=== PATIENT | female | born 1930 | race Caucasian/White ===

== ENCOUNTER 2017-05-15 20:25 | Inpatient (IN) | payer OTHER ==
[~2017-05-15] VITALS: Ht 162.6 cm; Wt 104.1 kg
[~2017-05-15 20:25] MED LIST: ADULT LOW DOSE81 M1 PO; ADVAIR 250/501 DISK IH; ALDACTONE25 MG PO; ALLOPURINOL100 MG PO; ATIVAN0.5 MG PO; Ativan PO; B-6 PO; CARDIZEM60 MG PO; CLARITIN10 M3 PO; COLCRYS0.6 MG PO; COUMADIN,JANTOVE2 MG PO; COUMADIN1 MG PO; COUMADIN4 MG PO; COUMADIN6 MG PO; CYANOCOBALAM1000 MCG PO; Colace PO; Colchicine,Colcrys PO; DESYREL100 MG PO; DIGITEK250 MCG PO; DITROPAN XL10 MG PO; DITROPAN XL5 MG PO; DITROPAN5 MG PO; DOCUSATE SODIU100 MG PO; DUONEB 2.5-0.5 M3 ML IH; FERROUS SULFAT325 MG PO; FIBER500 MG PO; FISH OIL PO; FUROSEMIDE40 MG PO; FUROSEMIDE80 MG PO; Feosol PO; IPRATR-ALBUTEROL3 ML IH; IRON SUPPLEMEN325 MG PO; IRON TABLET1 EACH PO; IRON325 M1 PO; IRON325 MG PO; K-DUR10 MEQ PO; KLOR-CON 1010 ME1 PO; KLOR-CON M2020 MEQ PO; LANOXIN,DIGIT0.25 MG PO; LASIX40 MG PO; LASIX80 MG PO; LEVAQUIN500 MG PO; LEVOFLOXACIN750 MG PO; LEVOTHROID,S0.125 MG PO; LEVOTHYROXINE125 MCG PO; LEVOTHYROXINE150 MCG PO; LORAZEPAM0.5 MG PO; LORTAB 7.5-500473 ML PO; Lasix PO; Levothroid,Synthroid PO; MICRO-K10 ME2 PO; MIRALAX17 GM PO; MIRALAX255 GM PO; MYCOSTATIN 100,60 ML PO; Metamucil Capsule PO; Micro-K,K-Tab,K-Dur, PO; Miralax, Glycolax PO; NASAL SPRAY30 M4 BOTH NARES; NON-ASPIRIN PA325 MG PO; Nitrostat,NitroQuick SL; OXYBUTYNIN CHLO10 MG PO; OXYBUTYNIN CHLOR5 MG PO; PAROXETINE HCL20 MG PO; PAROXETINE HCL40 MG PO; PAXIL20 MG PO; PAXIL40 MG PO; POTASSIUM CHLO10 ME4 PO; PRADAXA150 MG PO; PRAVACHOL40 MG PO; PRAVASTATIN SOD40 MG PO; PREDNISONE20 MG PO; PROVENTIL HFA6.7 GM IH; PT UNSURE OF MEDS; Paxil PO; Pravachol PO; Protonix PO; Pyridoxine,Vitamin B PO; RANITIDINE HCL150 MG PO; REQUIP0.5 MG PO; REQUIP1 MG PO; ROPINIROLE HCL1 MG PO; ROPINIROLE HCL2 MG PO; RX BALANCE INT1 EACH PO; Requip PO; SIMVASTATIN20 M1 PO; SIMVASTATIN20 MG PO; SPIRIVA1 INHALATI IH; SPIRONOLACTONE25 MG PO; SPIRONOLACTONE50 MG PO; STOOL SOFTENER100 MG PO; THEO-DUR,THEOC300 MG PO; TRAMADOL HCL50 MG PO; TRAVEL SICKNESS25 MG PO; TRAZODONE HCL100 MG PO; TYLENOL EXTRA500 MG PO; TYLENOL REGULA325 MG PO; ULTRAM50 MG PO; UNIPHYL600 MG PO; Ultram PO; VENTOLIN HFA18 GM IH; VERAPAMIL ER180 MG PO; VERAPAMIL HCL180 M2 PO; VESICARE10 MG PO; VICODIN 5-5001 EACH PO; VITAMIN B-6100 MG PO; VITAMIN B-650 MG PO; WARFARIN SODIUM3 MG PO; WARFARIN SODIUM5 MG PO; XANAX0.5 MG PO; XARELTO15 MG PO; Xarelto PO; ZESTRIL,PRINIVIL5 MG PO; ZITHROMAX250 MG PO; ZYLOPRIM100 MG PO; [UNRECOGNIZED DRUG - OTHER] PO
[2017-05-15 22:54] LABS: INTER. NORMALIZED RATIO 1.9; PROTHROMBIN TIME 19.4 (9.2-11.2)
[2017-05-15 22:57] LABS: CHLORIDE 98 mEq/L (99-109); POTASSIUM 4.6 mEq/L (3.7-5.4); SODIUM 141 mEq/L (136-147)
[2017-05-15 22:58] LABS: GLUCOSE 122 mg/dL (70-99)
[2017-05-15 23:00] LABS: ANION GAP 8 MEQ/L (2-14)
[2017-05-15 23:02] LABS: GFR ESTIMATE (CALCULATED) 50 mL/min/
[2017-05-15 23:03] LABS: UREA NITROGEN (BUN) 27 mg/dL (9-23)
[2017-05-15 23:23] LABS: EOSINOPHIL (%) 0.8 % (0-5); EOSINOPHIL COUNT 0.1 K/uL (0-0.3); HEMATOCRIT 38.6 % (36.0-46.0); IMMATURE GRANULOCYTE (%) 0.4 % (0.0-0.7); LYMPHOCYTE COUNT 1.3 K/uL (1.0-2.8); MCH 35.8 PG (29.0-34.0); MCHC 34.7 G/DL (30.0-36.0); MCV 103.2 FL (83-99); MEAN PLAT.VOLUME 10.2 uM^3 (9.5-12.4); MONOCYTE (%) 12.1 % (3-12); NEUTROPHIL (%) 71.4 % (45-76); PLATELET COUNT 221 K/uL (156-360); RBC DIS.WIDTH-CV 15.1 % (11.8-14.6); RBC DIS.WIDTH-SD 48.9 % (39-53); RED BLOOD COUNT 3.74 M/uL (3.80-5.20); WHITE BLOOD COUNT 8.4 K/uL (4.1-10.2)
[2017-05-15] MEDS ORDERED: COUMADIN5 MG PO (23:49)
[2017-05-15] MEDS ORDERED: MAGNESIUM OXID400 MG PO (23:50)
[2017-05-15] MEDS ORDERED: METOLAZONE2.5 MG PO (23:51)
[2017-05-15] MEDS ORDERED: PRILOSEC OTC20 MG PO (23:52)
[2017-05-15] MEDS ORDERED: REQUIP0.5 MG PO (23:53)
[2017-05-15] MEDS ORDERED: SENNA PLUS TAB1 EACH PO (23:54)
[2017-05-15] MEDS ORDERED: QUETIAPINE FUMA50 M1 PO (23:55)
[2017-05-15] MEDS ORDERED: SPIRONOLACTONE50 MG PO (23:55)
[2017-05-15] MEDS ORDERED: BRINTELLIX20 MG PO (23:57)
[2017-05-15] MEDS ORDERED: VITAMIN B-650 MG PO (23:58)
[2017-05-15] MEDS ORDERED: KLOR-CON M2020 MEQ PO (23:59)
[2017-05-16] VITALS (7 sets, daily range): BP systolic 107–138; BP diastolic 53–79
[2017-05-16] MEDS ORDERED: BUSPIRONE HCL10 MG PO
[2017-05-16] MEDS ORDERED: DULCOLAX10 MG PR (00:01)
[2017-05-16] MEDS ORDERED: LORAZEPAM0.5 MG PO (00:02)
[2017-05-16] MEDS ORDERED: MILK OF MAGN PO (00:03)
[2017-05-16] MEDS ORDERED: MIRALAX255 GM PO (00:03)
[2017-05-16 06:57] LABS: PROTHROMBIN TIME 20.6 (9.2-11.2); PTT 32.9 (25-32)
[2017-05-16 07:19] LABS: ALKALINE PHOSPHATASE 52 IU/L (3-129); ANION GAP 5 MEQ/L (2-14); CHLORIDE 99 MEQ/L (99-109); GFR ESTIMATE (CALCULATED) 56 mL/min/; GLUCOSE 95 mg/dL (70-99); POTASSIUM 3.8 MEQ/L (3.7-5.4); SAMPLE HEMOLYSIS CHECK 0; SAMPLE ICTERIC CHECK 0; SAMPLE LIPEMIA CHECK 0; SODIUM 142 MEQ/L (136-147); TOTAL BILIRUBIN 0.7 MG/DL (0.0-1.0); UREA NITROGEN (BUN) 28 mg/dL (9-23)
[2017-05-16 07:31] LABS: HEMATOCRIT 37.5 % (36.0-46.0); MCH 32.9 PG (29.0-34.0); MCHC 32.3 G/DL (30.0-36.0); MCV 101.9 FL (83-99); MEAN PLAT.VOLUME 9.9 uM^3 (9.5-12.4); PLATELET COUNT 201 K/uL (156-360); RBC DIS.WIDTH-CV 13.4 % (11.8-14.6); RED BLOOD COUNT 3.68 M/uL (3.80-5.20); WHITE BLOOD COUNT 6.6 K/uL (4.1-10.2)
[2017-05-17 03:57] VITALS: BP 134/64
[2017-05-17 07:18] LABS: INTER. NORMALIZED RATIO 2.1; PROTHROMBIN TIME 21.6 (9.2-11.2); PTT 33.1 (25-32)
[2017-05-17 07:58] VITALS: BP 120/67
[2017-05-17 08:09] LABS: ANION GAP 7 MEQ/L (2-14); CHLORIDE 93 MEQ/L (99-109); GFR ESTIMATE (CALCULATED) 56 mL/min/; GLUCOSE 92 mg/dL (70-99); POTASSIUM 3.7 MEQ/L (3.7-5.4); SAMPLE HEMOLYSIS CHECK 0; SAMPLE ICTERIC CHECK 0; SAMPLE LIPEMIA CHECK 0; SODIUM 140 MEQ/L (136-147); UREA NITROGEN (BUN) 25 mg/dL (9-23)
[2017-05-17 08:26] LABS: HEMATOCRIT 39.5 % (36.0-46.0); MCH 33.1 PG (29.0-34.0); MCHC 32.7 G/DL (30.0-36.0); MCV 101.3 FL (83-99); MEAN PLAT.VOLUME 10.1 uM^3 (9.5-12.4); PLATELET COUNT 202 K/uL (156-360); RBC DIS.WIDTH-CV 13.2 % (11.8-14.6); WHITE BLOOD COUNT 6.7 K/uL (4.1-10.2)
[2017-05-17] MEDS ORDERED: QUETIAPINE FUMA25 MG PO (15:23)
[2017-05-17 16:01] VITALS: BP 120/74
== END 2017-05-17 17:43 | DRG 86 ==
LOC: EME 20:25 → EDOF 23:48 → 3EAST 05-16 00:43
PROVIDERS: Emergency Medicine; Internal Medicine; Physician Assistant
DX: S06.5X0A Traumatic subdural hemorrhage without loss of consciousness, initial encounter (principal); W04.XXXA Fall while being carried or supported by other persons, initial encounter; N17.9 Acute kidney failure, unspecified; I11.0 Hypertensive heart disease with heart failure; I50.32 Chronic diastolic (congestive) heart failure; I48.2 Chronic atrial fibrillation; I47.1 Supraventricular tachycardia; J44.9 Chronic obstructive pulmonary disease, unspecified; E03.9 Hypothyroidism, unspecified; G47.33 Obstructive sleep apnea (adult) (pediatric); K59.00 Constipation, unspecified; E66.01 Morbid (severe) obesity due to excess calories; Z68.39 Body mass index [BMI] 39.0-39.9, adult; Z91.19 Patient's noncompliance with other medical treatment and regimen; E78.00 Pure hypercholesterolemia, unspecified; E78.5 Hyperlipidemia, unspecified; M19.90 Unspecified osteoarthritis, unspecified site; M10.9 Gout, unspecified; K21.9 Gastro-esophageal reflux disease without esophagitis; F32.9 Major depressive disorder, single episode, unspecified; F41.9 Anxiety disorder, unspecified; Z51.5 Encounter for palliative care; Z66 Do not resuscitate; Z79.01 Long term (current) use of anticoagulants; Z87.891 Personal history of nicotine dependence; Z95.0 Presence of cardiac pacemaker; Z95.2 Presence of prosthetic heart valve; Z99.81 Dependence on supplemental oxygen
CPT/HCPCS: 70450; 73130; 80048; 80053; 82607; 85025; 85027; 85610; 85730; 94799; 99281; 99284; J2270; J2405; J7030; S0028

== ENCOUNTER 2017-08-08 20:37 | Inpatient (IN) | payer OTHER ==
[~2017-08-08] VITALS: Ht 157.5 cm; Wt 103.2 kg
[~2017-08-08 20:37] MED LIST changes: +BRINTELLIX20 MG PO; +BUSPIRONE HCL10 MG PO; +COUMADIN5 MG PO; +DULCOLAX10 MG PR; +MAGNESIUM OXID400 MG PO; +METOLAZONE2.5 MG PO; +MILK OF MAGN PO; +PRILOSEC OTC20 MG PO; +QUETIAPINE FUMA25 MG PO; +QUETIAPINE FUMA50 M1 PO; +SENNA PLUS TAB1 EACH PO
[2017-08-08 22:25] LABS: INTER. NORMALIZED RATIO 2.2; PROTHROMBIN TIME 24.8 SEC (10.2-12.9)
[2017-08-08 22:27] LABS: PTT 35.7 SEC (25-37)
[2017-08-08 22:29] LABS: CHLORIDE 95 mEq/L (99-109); POTASSIUM 4.9 mEq/L (3.7-5.4); SODIUM 141 mEq/L (136-147)
[2017-08-08 22:31] LABS: GLUCOSE 135 mg/dL (70-99)
[2017-08-08 22:32] LABS: ANION GAP 10 MEQ/L (2-14)
[2017-08-08 22:33] LABS: TOTAL BILIRUBIN 0.4 mg/dL (0.0-1.0)
[2017-08-08 22:35] LABS: ALKALINE PHOSPHATASE 92 IU/L (3-129); GFR ESTIMATE (CALCULATED) 50 mL/min/
[2017-08-08 22:36] LABS: UREA NITROGEN (BUN) 36 mg/dL (9-23)
[2017-08-08 22:38] LABS: LIPASE 54 U/L (1.0-51.0)
[2017-08-08 22:41] LABS: TROP-I INTERPRETATION NEGATIVE; TROPONIN-I 0.02 ng/mL (0.0-0.30)
[2017-08-08 22:54] LABS: EOSINOPHIL (%) 2.2 % (0-5); EOSINOPHIL COUNT 0.2 K/uL (0-0.3); HEMATOCRIT 36.2 % (36.0-46.0); HEMATOLOGY COMMENT 1 COLD AGGLUTININS; IMMATURE GRANULOCYTE (%) 0.5 % (0.0-0.7); IMMATURE GRANULOCYTE COUNT 0.1 K/uL; INSTRUMENT ABS NEUTROPHIL CT 7.2 K/uL; LYMPHOCYTE COUNT 1.7 K/uL (1.0-2.8); MCH 32.8 PG (29.0-34.0); MCHC 33.1 G/DL (30.0-36.0); MCV 98.9 FL (83-99); MEAN PLAT.VOLUME 10.5 uM^3 (9.5-12.4); MONOCYTE (%) 12.2 % (3-12); MONOCYTE COUNT 1.3 K/uL (0-0.8); NEUTROPHIL (%) 68.6 % (45-76); NEUTROPHIL COUNT 7.2 K/uL (1.8-6.4); PLATELET COUNT 264 K/uL (156-360); RBC DIS.WIDTH-CV 13.5 % (11.8-14.6); RBC DIS.WIDTH-SD 48.2 % (39-53); RED BLOOD COUNT 3.66 M/uL (3.80-5.20); WHITE BLOOD COUNT 10.6 K/uL (4.1-10.2)
[2017-08-09] VITALS (18 sets, daily range): BP systolic 88–148; BP diastolic 44–108
[2017-08-09] MEDS ORDERED: ASPIR 8181 M1 PO (08:27)
[2017-08-09] MEDS ORDERED: COUMADIN1 MG PO (08:38)
[2017-08-09] MEDS ORDERED: COUMADIN4 MG PO (08:39)
[2017-08-09] MEDS ORDERED: KLOR-CON M2020 MEQ PO (08:44)
[2017-08-09] MEDS ORDERED: SYSTANE BALANCE10 ML BOTH EYES (08:45)
[2017-08-09 10:02] LABS: METH RESISTANT S AUREUS PCR NEGATIVE (NEGATIVE)
[2017-08-09 10:07] LABS: ANION GAP 8 MEQ/L (2-14); CHLORIDE 100 MEQ/L (99-109); POTASSIUM 4.5 MEQ/L (3.7-5.4); SAMPLE HEMOLYSIS CHECK 0; SAMPLE ICTERIC CHECK 0; SAMPLE LIPEMIA CHECK 0; SODIUM 142 MEQ/L (136-147)
[2017-08-09 10:10] LABS: PROBE CHECK PASS; SPECIMEN PROCESSING CONTROL PASS
[2017-08-09 10:12] LABS: GFR ESTIMATE (CALCULATED) > 59 mL/min/; GLUCOSE 129 mg/dL (70-99); UREA NITROGEN (BUN) 37 mg/dL (9-23)
[2017-08-09 10:16] LABS: PROTHROMBIN TIME 22.6 SEC (10.2-12.9)
[2017-08-09 10:31] LABS: HEMATOCRIT 29.5 % (36.0-46.0); MCH 32.5 PG (29.0-34.0); MCHC 32.5 G/DL (30.0-36.0); MEAN PLAT.VOLUME 10.6 uM^3 (9.5-12.4); PLATELET COUNT 245 K/uL (156-360); RBC DIS.WIDTH-CV 13.5 % (11.8-14.6); RBC DIS.WIDTH-SD 48.9 % (39-53); RED BLOOD COUNT 2.95 M/uL (3.80-5.20); WHITE BLOOD COUNT 11.1 K/uL (4.1-10.2)
[2017-08-09 20:05] LABS: HEMATOCRIT 19.7 % (36.0-46.0); MCV 110.1 FL (83-99)
[2017-08-10] VITALS (25 sets, daily range): BP systolic 88–138; BP diastolic 41–75
[2017-08-10 06:00] LABS: INTER. NORMALIZED RATIO 1.6; PROTHROMBIN TIME 17.8 SEC (10.2-12.9)
[2017-08-10 06:02] LABS: PTT 30.3 SEC (25-37)
[2017-08-10 06:10] LABS: ANION GAP 7 MEQ/L (2-14); CHLORIDE 102 MEQ/L (99-109); GFR ESTIMATE (CALCULATED) > 59 mL/min/; GLUCOSE 109 mg/dL (70-99); SAMPLE HEMOLYSIS CHECK 0; SAMPLE ICTERIC CHECK 0; SAMPLE LIPEMIA CHECK 0; SODIUM 143 MEQ/L (136-147); UREA NITROGEN (BUN) 31 mg/dL (9-23)
[2017-08-10 06:14] LABS: POTASSIUM 3.1 MEQ/L (3.7-5.4)
[2017-08-10 06:50] LABS: ANISOCYTOSIS 1+; MACROCYTES 1+; PLAT.SUFFICIENCY DECREASED
[2017-08-10 07:56] LABS: ABS NEUTROPHIL COUNT 6.6; ATYPICAL LYMPHOCYTE 2.6 %; BAND NEUTROPHILS 0.8 % (0-8.0); EOSINOPHIL ABS CT 0.2; EOSINOPHILS 2.6 % (0-5.0); HEMATOCRIT 27.3 % (36.0-46.0); INSTRUMENT ABS NEUTROPHIL CT 6.3 K/uL; LYMPHOCYTES 8.6 % (15.0-45.0); MCH 32.4 PG (29.0-34.0); MCV 98.2 FL (83-99); MEAN PLAT.VOLUME 10.5 uM^3 (9.5-12.4); METAMYELOCYTES 0.9 %; PLATELET COUNT 178 K/uL (156-360); RBC DIS.WIDTH-CV 15.9 % (11.8-14.6); RBC DIS.WIDTH-SD 56.2 % (39-53); RED BLOOD COUNT 2.78 M/uL (3.80-5.20); WHITE BLOOD COUNT 8.7 K/uL (4.1-10.2)
[2017-08-10 11:21] LABS: MCV 95.9 FL (83-99)
[2017-08-10 20:10] LABS: HEMATOCRIT 22.7 % (36.0-46.0); MCV 105.1 FL (83-99)
[2017-08-11] VITALS (8 sets, daily range): BP systolic 93–127; BP diastolic 39–60
[2017-08-11 06:57] LABS: HEMATOCRIT 26.3 % (36.0-46.0); HEMATOLOGY COMMENT 1 COLD AGGLUTININS; MCH 31.2 PG (29.0-34.0); MCHC 31.9 G/DL (30.0-36.0); MEAN PLAT.VOLUME 10.6 uM^3 (9.5-12.4); PLATELET COUNT 156 K/uL (156-360); RBC DIS.WIDTH-CV 15.8 % (11.8-14.6); RBC DIS.WIDTH-SD 55.4 % (39-53); RED BLOOD COUNT 2.69 M/uL (3.80-5.20); WHITE BLOOD COUNT 6.6 K/uL (4.1-10.2)
[2017-08-11 07:04] LABS: MCV 97.8 FL (83-99)
[2017-08-11 11:04] LABS: ANION GAP 5 MEQ/L (2-14); CHLORIDE 99 MEQ/L (99-109); POTASSIUM 2.9 MEQ/L (3.7-5.4); SAMPLE HEMOLYSIS CHECK 0; SAMPLE ICTERIC CHECK 0; SAMPLE LIPEMIA CHECK 0; SODIUM 141 MEQ/L (136-147)
[2017-08-11 11:06] LABS: ANION GAP 5 MEQ/L (2-14); CHLORIDE 99 MEQ/L (99-109); POTASSIUM 2.7 MEQ/L (3.7-5.4); SAMPLE HEMOLYSIS CHECK 0; SAMPLE ICTERIC CHECK 0; SAMPLE LIPEMIA CHECK 0; SODIUM 140 MEQ/L (136-147)
[2017-08-11 11:10] LABS: GFR ESTIMATE (CALCULATED) > 59 mL/min/; GLUCOSE 139 mg/dL (70-99); UREA NITROGEN (BUN) 14 mg/dL (9-23)
[2017-08-11 20:40] LABS: HEMATOCRIT 22.9 % (36.0-46.0)
[2017-08-12] VITALS: BP 126/56
[2017-08-12 04:00] VITALS: BP 117/48
[2017-08-12 08:00] VITALS: BP 131/58
[2017-08-12 09:12] LABS: HEMATOCRIT 26.6 % (36.0-46.0); MCH 31.5 PG (29.0-34.0); MEAN PLAT.VOLUME 10.1 uM^3 (9.5-12.4); PLATELET COUNT 170 K/uL (156-360); RBC DIS.WIDTH-SD 52.9 % (39-53); WHITE BLOOD COUNT 5.2 K/uL (4.1-10.2)
[2017-08-12 09:13] LABS: MCV 98.5 FL (83-99)
[2017-08-12 09:16] LABS: ANION GAP 3 MEQ/L (2-14); CHLORIDE 103 MEQ/L (99-109); GFR ESTIMATE (CALCULATED) > 59 mL/min/; SAMPLE HEMOLYSIS CHECK 0; SAMPLE ICTERIC CHECK 0; SAMPLE LIPEMIA CHECK 0; SODIUM 144 MEQ/L (136-147); UREA NITROGEN (BUN) 14 mg/dL (9-23)
[2017-08-12 09:17] LABS: GLUCOSE 90 mg/dL (70-99); POTASSIUM 4.2 MEQ/L (3.7-5.4)
[2017-08-12 12:00] VITALS: BP 126/73
[2017-08-12 16:00] VITALS: BP 122/66
[2017-08-12 20:00] VITALS: BP 114/48
[2017-08-13] VITALS: BP 115/59
[2017-08-13 04:00] VITALS: BP 115/54
[2017-08-13 05:53] LABS: INTER. NORMALIZED RATIO 1.1; PROTHROMBIN TIME 11.7 SEC (10.2-12.9)
[2017-08-13 08:00] VITALS: BP 125/72
[2017-08-13 12:00] VITALS: BP 116/52
[2017-08-13 13:06] LABS: HEMATOCRIT 28.5 % (36.0-46.0)
[2017-08-13] MEDS ORDERED: PANTOPRAZOLE SO40 MG PO (13:49)
[2017-08-13 15:00] VITALS: BP 116/52
== END 2017-08-13 15:20 | DRG 378 ==
LOC: EME 20:37 → EDOF 08-09 02:52 → ENRESERV 08-09 02:54 → 5WEST 08-09 04:27 → 4WEST 08-09 07:38 → 5WEST 08-09 07:38 → ENRESERV 08-09 07:56 → 4WEST 08-09 08:35 → ENRESERV 08-12 09:08 → CANRESERV 08-13 10:19 → ENRESERV 08-13 10:19 → 4WEST 08-13 15:20
PROVIDERS: Emergency Medicine; Hospitalist; Internal Medicine; Nurse Practitioner Adult Health; Nurse Practitioner Family; Specialist
PROC: 30233N1 Transfusion of Nonautologous Red Blood Cells into Peripheral Vein, Percutaneous Approach (ICD-10-PCS; principal; 2017-08-09)
PROC: 30233K1 Transfusion of Nonautologous Frozen Plasma into Peripheral Vein, Percutaneous Approach (ICD-10-PCS; principal; 2017-08-09)
PROC: 0DJ08ZZ Inspection of Upper Intestinal Tract, Via Natural or Artificial Opening Endoscopic (ICD-10-PCS; 2017-08-10)
PROC: 0DJD8ZZ Inspection of Lower Intestinal Tract, Via Natural or Artificial Opening Endoscopic (ICD-10-PCS; 2017-08-10)
PROC: 0DBP8ZX Excision of Rectum, Via Natural or Artificial Opening Endoscopic, Diagnostic (ICD-10-PCS; 2017-08-10)
DX: K57.31 Diverticulosis of large intestine without perforation or abscess with bleeding (principal); I48.91 Unspecified atrial fibrillation; D50.9 Iron deficiency anemia, unspecified; I11.0 Hypertensive heart disease with heart failure; I50.9 Heart failure, unspecified; E87.6 Hypokalemia; J44.9 Chronic obstructive pulmonary disease, unspecified; J96.10 Chronic respiratory failure, unspecified whether with hypoxia or hypercapnia; G47.33 Obstructive sleep apnea (adult) (pediatric); Z99.81 Dependence on supplemental oxygen; Z91.19 Patient's noncompliance with other medical treatment and regimen; I65.29 Occlusion and stenosis of unspecified carotid artery; E66.01 Morbid (severe) obesity due to excess calories; K29.60 Other gastritis without bleeding; D12.8 Benign neoplasm of rectum; K64.8 Other hemorrhoids; K44.9 Diaphragmatic hernia without obstruction or gangrene; Z68.41 Body mass index [BMI] 40.0-44.9, adult; M19.012 Primary osteoarthritis, left shoulder; I08.0 Rheumatic disorders of both mitral and aortic valves; I25.10 Atherosclerotic heart disease of native coronary artery without angina pectoris; K21.9 Gastro-esophageal reflux disease without esophagitis; E78.00 Pure hypercholesterolemia, unspecified; E03.9 Hypothyroidism, unspecified; M10.9 Gout, unspecified; G25.81 Restless legs syndrome; N32.89 Other specified disorders of bladder; Z66 Do not resuscitate; F41.9 Anxiety disorder, unspecified; F32.9 Major depressive disorder, single episode, unspecified; Z95.2 Presence of prosthetic heart valve; Z95.0 Presence of cardiac pacemaker; Z96.641 Presence of right artificial hip joint; Z79.01 Long term (current) use of anticoagulants; Z79.82 Long term (current) use of aspirin; Z87.891 Personal history of nicotine dependence
CPT/HCPCS: 71010; 73030; 74177; 80048; 80051; 80053; 81003; 83690; 84484; 85014; 85018; 85025; 85027; 85610; 85730; 86850; 86860; 86870; 86880; 86900; 86901; 86920; 87177; 87329; 87493; 87641; 88305; 90686; 93005; 94760; 94799; 99281; 99285; C9113; J1200; J1940; J2405; J3010; J3480; J7030; J7040; P9016; P9017